=== PATIENT | female | born 1965 | race American Indian/Alaskan Native ===

== ENCOUNTER 2018-04-30 07:02 | Day surgery (SDC) | payer OTHER ==
[2018-04-29 13:05] VITALS: BMI 53.9
[2018-04-30] MEDS ORDERED: Propofol 10 mg/ml Inj (20 ML) ONE ×2 (10:19→10:50)
[2018-04-30] MEDS ORDERED: Midazolam 2 MG/2 ML VIAL ONE (10:20)
[2018-04-30] MEDS ORDERED: Succinylcholine Chloride 20 mg/ml Syr (5 ml) IV ONE (10:20)
[2018-04-30] MEDS ORDERED: cefOXitin IV 1 gm in Dextrose 2 GM/100 ML BAG IVPB ONE (10:33)
[2018-04-30] MEDS ORDERED: HYDROmorphone 0.5 mg/0.5 ml ISec IVP PRN (11:04)
[2018-04-30 13:03] VITALS: RESP 18; O2SAT 100
[2018-04-30 13:37] VITALS: BP 129/64; PULSE 71; TEMP 98
--- NOTE | 2018-05-01 06:18 | OP ---
PROCEDURE DATE: 04/30/2018 PREOPERATIVE DIAGNOSIS: A 52-year-old 3, para 2 with abnormal uterine bleeding. POSTOPERATIVE DIAGNOSES: A 52-year-old 3, para 2 with abnormal uterine bleeding with cervical polyp and endometrial polyp. SURGEON: Eugenio Saunders MD. ANESTHESIA: General anesthesia. ANESTHESIOLOGIST: . PROCEDURE: MyoSure, dilation and curettage, cystoscopy. COMPLICATIONS: None. DEFICIT: 200 mL. DESCRIPTION OF PROCEDURE: After informed consent was obtained, the patient was brought to the operating room, placed on the table where general anesthesia was given. Once the anesthesia was found to be adequate, the patient was prepped and draped in the normal sterile fashion. Anterior lip of the cervix was grasped with a tenaculum. Gentle dilatation of the cervix was performed. It was found that there was a polyp on the posterior wall of the uterus. Pictures were taken, and there was a polyp on the cervix which was taken on with backbiting forceps sent to the pathology. Another polyp was found on the posterior wall of uterus taken with MyoSure. After that, sharp curettage of all the morris of the uterus was done and ECC was done and it was sent to the pathology too. Now, the tenaculum was taken out of the anterior lip of the cervix. After that, there was no polyp. The patient tolerated the procedure well. Lap, sponge, and instrument counts were correct x2. Deficit was 200 mL. . Eugenio Saunders MD
== END 2018-04-30 13:26 | disposition home or self-care (01) ==
LOC: C.SDS 07:02
PROVIDERS: ATTEND Obstetrics & Gynecology
DX: N84.1 Polyp of cervix uteri (principal); N84.0 Polyp of corpus uteri; N93.9 Abnormal uterine and vaginal bleeding, unspecified
CPT/HCPCS: 58558; 88305; J0694; J2001; J2250; J2704; J3010